=== PATIENT | female | born 1960 | race Two or more races ===

== ENCOUNTER 2017-06-23 05:49 | Inpatient (IN) | payer BC ==
[~2017-06-23] VITALS: Ht 165.1 cm; Wt 71.7 kg
[2017-06-23] VITALS (13 sets, daily range): BP systolic 108–126; BP diastolic 67–79
[2017-06-23] MEDS ORDERED: SYNTHROID75 MCG ORAL (06:32)
[2017-06-23] MEDS ORDERED: NORCO 5-325 TA1 EACH ORAL (06:32)
[2017-06-23] MEDS ORDERED: Thrombin 5000 units TOPIC ONE ×2 (07:05→11:12)
[2017-06-23] MEDS ORDERED: Bacitracin 50000 Units Vial ONE (07:06)
[2017-06-23] MEDS ORDERED: Gelfoam Absorbable 1gm powder pkt TOPIC ONE (07:06)
[2017-06-23] MEDS ORDERED: Bupivacaine w/Epi 0.5% 30ml Vial INJ ONE (07:06)
[2017-06-23] MEDS ORDERED: Surgicel 4in x 8in TOPIC ONE (07:06)
[2017-06-23] MEDS ORDERED: Thrombin 5000 units spray kit TOPIC ONE (07:06)
[2017-06-23] MEDS ORDERED: Chloraseptic Spray 20mL Bottle ORAL PRN (07:15)
[2017-06-23] MEDS ORDERED: HYDROmorphone 1mg/ml Carpuject SUBQ PRN (07:15)
[2017-06-23] MEDS ORDERED: LR 1000ml ONE (07:30)
[2017-06-23] MEDS ORDERED: Zemuron 50mg/5ml Inj IV ONE (07:30)
[2017-06-23] MEDS ORDERED: Morphine Sulfate 10mg/ml Inj ONE (07:30)
[2017-06-23] MEDS ORDERED: Propofol 200mg/20ml IV ONE (07:30)
[2017-06-23] MEDS ORDERED: fentaNYL 100 mcg/2 mL IV ONE (07:30)
[2017-06-23] MEDS ORDERED: Midazolam 2mg/2ml Inj ONE (07:30)
[2017-06-23] MEDS ORDERED: Neostigmine 1mg/ml 10ml Inj ONE (07:30)
[2017-06-23] MEDS ORDERED: NS Irrig 1000ml ONE (07:30)
[2017-06-23] MEDS ORDERED: Metoclopramide 10mg/2ml Inj ONE (07:30)
[2017-06-23] MEDS ORDERED: Propofol 1,000mg/ 100ml btl IV ONE (07:30)
[2017-06-23] MEDS ORDERED: Ketorolac 30mg Inj ONE (07:30)
[2017-06-23] MEDS ORDERED: Meperidine 25mg/0.5ml Inj (FOR RIGORS ONLY) ONE (07:30)
[2017-06-23] MEDS ORDERED: Glycopyrrolate 0.2mg/ml 1ml Vial ONE (07:30)
[2017-06-23] MEDS ORDERED: Sterile Water Irrig 1000ml IRRIG ONE (07:30)
--- NOTE | 2017-06-23 07:51 | Pre-Procedure Note/Attestation ---
Pre-Procedure Note/Attestation Complete Prior to Procedure Planned Procedure: not applicable Procedure Narrative: C5-7 ACDF Indications for Procedure Pre-Operative Diagnosis: C5-7 disc hernia Attestation I attest that I discussed the nature of the procedure; its benefits; risks and complications; and alternatives (and the risks and benefits of such alternatives ), prior to the procedure, with the patient (or the patient's legal inbound sales representative). I attest that, if there was a reasonable possibility of needing a blood transfusion, the patient (or the patient's legal inbound sales representative) was given the [facility] standardized written summary, pursuant to the [place] Shun Blood Safety Act ([place] Health and Safety Code # 1645, as amended). I attest that I re-evaluated the patient just prior to the surgery and that there has been no change in the patient's H&P, except as documented below: NADINE AMARO Jun 23, 2017 07:51
--- NOTE | 2017-06-23 08:56 | Anethesia Preoperative Eval ---
Anesthesia Pre-op PMH/ROS General Date of Evaluation: Jun 23, 2017 Time of Evaluation: 07:30 Anesthesiologist: DIANE ASA Score: ASA 2 Mallampati Score Class I : Soft palate, uvula, fauces, pillars visible Class II: Soft palate, uvula, fauces visible Class III: Soft palate, base of uvula visible Class IV: Only hard plate visible Mallampati Classification: Class II Surgeon: RELL Diagnosis: CERVICAL RADICULOPATHY Surgical Procedure: C5-7 ACDF Anesthesia History: none Family History: no anesthesia problems Allergies: Coded Allergies: FLUCONAZOLE (Verified Allergy, Severe, Hives, 06/23/17) hives Medications: see eMAR Past Medical History Other: other PMH Narrative: HYPOTHYROIDISM Anesthesia Pre-op Phys. Exam Physician Exam Last Vital Signs Date Time Temp Pulse Resp B/P (MAP) Pulse Ox O2 Delivery O2 Flow Rate FiO2 06/23/17 06:24 98.0 61 18 119/79 97 Room Air Constitutional: NAD Neurologic: CN 2-12 intact Cardiovascular: RRR Respiratory: CTA Airway Exam Mallampati Score: Class II MO: full ROM: full Teeth: intact Anesthesia Pre-op A/P Labs WNL Studies Pre-op Studies: EKG Risk Assessment & Plan Plan: gENERAL aNESTHESIA Status Change Before Surgery: No Pre-Antibiotics Given Within 1 Hr of Incision: Yes Time Given: 08:30 Mitch Hassan M.D. Jun 23, 2017 08:56
--- NOTE | 2017-06-23 08:58 | Immediate Post-Op Evaluation ---
Immediate Post-Op Evalulation Immediate Post-Op Evalulation Procedure: C5-7 ACDF Date of Evaluation: Jun 23, 2017 Time of Evaluation: 12:00 IV Fluids: 1300 Blood Products: 0 Estimated Blood Loss: 30 Urinary Output: 100 Blood Pressure Systolic: 130 Blood Pressure Diastolic: 65 Pulse Rate: 68 Respiratory Rate: 16 O2 Sat by Pulse Oximetry: 99 Temperature (Fahrenheit): 98 Pain Score (1-10): 0 Nausea: No Vomiting: No Patient Status: awake, reacts, patent, extubated, none Hydration Status: adequate Given Within 1 Hr of Incision: Yes Time Given: 08:30 Mitch Hassan M.D. Jun 23, 2017 08:58
[2017-06-23] MEDS ORDERED: Ketorolac 30mg Inj IV PRN (09:00)
[2017-06-23] MEDS ORDERED: LR 1000ml 1,000 ML IVLG SCH (09:00)
[2017-06-23] MEDS ORDERED: Morphine Sulfate 2mg/ml Inj IVP PRN (09:00)
[2017-06-23] MEDS ORDERED: Meperidine 50mg/ml Inj(FOR RIGORS ONLY) IVP PRN (09:00)
[2017-06-23] MEDS ORDERED: fentaNYL 100 mcg/2 mL IV PRN (09:00)
[2017-06-23] MEDS ORDERED: Acetaminophen (Non formulary) 100 ML IV ONE (09:00)
[2017-06-23] MEDS ORDERED: Docusate 100mg/10ml Liq NG SCH (09:00)
[2017-06-23] MEDS ORDERED: DiphenhydrAMINE 50mg/ml Inj IVP PRN (09:00)
--- NOTE | 2017-06-23 09:00 | 48 Hour Post Anesthesia Eval ---
Post Anesthesia Evaluation Procedure: C5-7 ACDF Date of Evaluation: Jun 25, 2017 Time of Evaluation: 12:00 Blood Pressure Systolic: 126 0: 65 Pulse Rate: 56 Respiratory Rate: 18 Temperature (Fahrenheit): 97 O2 Sat by Pulse Oximetry: 99 Airway: patent Nausea: No Vomiting: No Pain Intensity: 0 Hydration Status: adequate Mental Status/LOC: patient returned to baseline Follow-up care needed: patient intructions given Mitch Hassan M.D. Jun 23, 2017 09:00
[2017-06-23] MEDS ORDERED: Neosporin Oint Ud Pkt TOPIC ONE (12:53)
--- NOTE | 2017-06-23 13:02 | Brief Operative Note ---
Immediate Post Operative Note Operative Note Pre-op Diagnosis: C5-7 disc hernia Post-op Diagnosis: same as pre-op Findings: consistent w/pre-op dx studies Surgeon: Enid Director Data Management: Karen Anesthesia: general Specimen: yes - C5-7 disc Complications: none Condition: stable Fluids: 1 lt NS Estimated Blood Loss: minimal Drains: hemovac Implant(s) used?: Yes NADINE AMARO Jun 23, 2017 13:02
[2017-06-23] MEDS ORDERED: Norco 5mg/325mg tab ORAL PRN (13:15)
[2017-06-23] MEDS ORDERED: Morphine Sulfate 4mg/ml Inj SUBQ PRN (13:15)
--- NOTE | 2017-06-23 14:19 | Diagnostic Imaging Report ---
Indication: Neck Pain Findings: Fluoroscopic views of the cervical spine were obtained. Localization images followed by anterior fusion at C5-6 and C6-7 noted. impression: Intraoperative imaging
[2017-06-23] MEDS: Morphine Sulfate 4mg/ml Inj SUBQ PRN ×2 (15:52→19:49)
[2017-06-23] MEDS: ceFAZolin sod 1 GM in D5W 55 ML IV SCH ×2 (16:43→21:41)
--- NOTE | 2017-06-23 17:00 | Consultation ---
DATE OF CONSULTATION: 06/23/2017 CONSULTING PHYSICIAN: Mitch Aguilar M.D. REFERRING PHYSICIAN: Foreign Rossi M.D. REASON FOR CONSULTATION: Acute pain consult. HISTORY OF PRESENT ILLNESS: Dear Dr. Foreign Rossi, Thank you kindly for consulting me to evaluate and render an opinion as to how to proceed in the management of the patient's acute postoperative cervical spine pain after multiple level cervical spine instrumentation surgery today. On your request, I saw the patient for pain consultation to help with her postoperative neck pain. I saw the patient at the bedside with the nurse. I performed detailed history and physical examination and devised the following analgesic plan. I have reviewed the medical record in detail including multiple records from today's date of surgery, 06/23/2017 at [facility], also reviewed multiple preoperative records from [facility] from May 2017 along with diagnostic testing. I spent over 75 minutes in consultation with an additional 30 minutes in medical record review. PAST MEDICAL HISTORY: 1. Acute postoperative cervical spine pain status post multiple-level cervical spine instrumentation surgery by Dr. Foreign Rossi in June 2017. 2. Hypothyroidism. PAST SURGICAL HISTORY: In the medical record. MEDICATIONS AT HOME: 1. Synthroid 75 mcg daily. 2. [place] 10/325 two to four tablets daily. ALLERGIES: Fluconazole, in high doses causes a rash. Social History: The patient denies current alcohol, marijuana, or tobacco usage. FAMILY HISTORY: Longevity. REVIEW OF SYSTEMS: Per attending physician. PHYSICAL EXAMINATION: Vital Signs: Age 56. Height 5 feet 5 inches and weight 71 kilograms. Body mass index 27. Vital Signs: Afebrile, pulse 61, respirations 18, blood pressure 119/79, and oxygen saturation 97%. HEENT: Extraocular muscles intact. Pupils are equal, round, and accommodative. Neck And Neurologic: A detailed neck and neurologic exam per Dr. Rossi. CHEST: Clear to auscultation. HEART: Regular rate and rhythm. ABDOMEN: Soft. Positive bowel sounds. BREASTS: Deferred. GENITOURINARY: Deferred. Diagnostic Testing: Cervical spine x-ray on 04/10/2017 shows grade 1 spondylolisthesis seen at C4-C5. Preoperative chest x-ray on 06/13/2017 shows left basilar subsegmental atelectasis and normal heart silhouette. Preoperative 12-lead EKG within normal limits. Normal sinus rhythm at 68 on 06/16/2017. Laboratory Studies: Laboratory studies from 06/12/2017 shows glucose 97, BUN 17, creatinine 0.7, sodium 140, potassium 4.0, chloride 101, bicarb 31, and calcium 9.7. Total protein 7.5. Albumin 4.5. Total bilirubin 0.7. Alkaline phosphatase 113, AST 25, and ALT 14. , PTT 28, INR 1.0. White count 8, hematocrit 43, and platelets 291,000. Urinalysis is negative. HIV and hepatitis A, B, and C are all negative. IMPRESSION: 1. Acute postoperative cervical spine pain status post multiple-level cervical spine instrumentation surgery by Dr. Foreign Rossi in June 2017. 2. Hypothyroidism. Treatment And Recommendations: I have devised the following analgesic plan to help with her pain control postoperatively. The patient responds well to hydrocodone which she uses at home. She uses [place] 10/325 tablets anywhere between half a tablet and the full tablet three to four times per day. I have increased the dose to 10/325 one full tablet every three hours p.r.n. for mild pain. The patient has tolerated Dilaudid in the past without any adverse side effects. I have ordered Dilaudid 1 mg subcutaneously every three hours p.r.n. for severe breakthrough pain. The patient denies anxiety or any use of benzodiazepine medication. I would hold off on this class of agents for now. The patient also states that muscle relaxants have caused excessive sedation in the past, so I would avoid these medications as well. 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 I have ordered Chloraseptic spray bottle and Cepacol lozenges at the bedside to help with sore throat complaints postoperatively. I will empirically place the patient on Protonix 40 mg daily for gastrointestinal ulcer prophylaxis and I have also order a p.r.n. dose of Mylanta 30 mL q.6 hours in case of any gastroesophageal reflux disease symptom exacerbation. I have ordered Benadryl 25 mg orally every six hours p.r.n. for itching symptoms. I have ordered Zofran as a rescue antiemetic at a dose of 4 mg intravenously with a backup second-line antiemetic dose of Phenergan 12.5 mg every 8 hours p.r.n. As a rescue laxative, I have ordered Dulcolax suppository. I have also ordered clonidine 0.1 mg in case of systolic blood pressure greater than 150 mmHg. I have ordered incentive spirometer and encouraged good pulmonary toilet. I will defer DVT prophylaxis to the surgeon. Mitch Aguilar M.D. DR: REGINE JOB#: [id number] CC:
[2017-06-23] MEDS: Docusate 100mg cap ORAL SCH (18:03)
--- NOTE | 2017-06-23 21:41 | History and Physical ---
History of Present Illness General Date patient seen: Jun 23, 2017 Time patient seen: 21:37 Reason for Hospitalization: i WAS ASKED BY DR GARAY TO EVALUATE THE PATIENT IN INTERNAL MEDICAL CONSULT. Present Illness HPI 56YEAR OLD FEMALE IWITHHISTORY OF HYPOTHYROIDISM IS ADMITED TO UNDER GO CERVICAL SPIEN SURGERY. sHE IS S/P CERVICAL SPINE SURGERY DRAIN I S IN PLACE NO FEVER HAS JE EMUSCLE SPASM TOOK NORCO PRIOR TO ADMIOT AND LIKEES THAT BETTER THAN THE MORPHIE SHE IS TAKING NOW Allergies: Coded Allergies: FLUCONAZOLE (Verified Allergy, Severe, Hives, 06/23/17) hives Medication History Scheduled Levothyroxine Sodium* (Synthroid*), 75 MCG ORAL DAILY, (Reported) Scheduled PRN Hydrocodone Bit/Acetaminophen 5-325* ([place] 5-325*), 1 TAB ORAL Q4H PRN for For Pain, (Reported) Patient History Healthcare decision maker antonia phillips(mom and dad) Resuscitation status Full Code Advanced Directive on File No Past Medical/Surgical History Past Medical/Surgical History: (1) Hypothyroid Review of Systems Constitutional: Reports: no symptoms Eye: Reports: no symptoms ENT: Reports: no symptoms Cardiovascular: Reports: no symptoms Musculoskeletal: Reports: other - HAS AL MATT F SPASM Physical Exam General Appearance: WD/WN HEENT: normocephalic, atraumatic Neck: other - WEARING CERVICAL COLLAR Respiratory/Chest: lungs clear Cardiovascular/Chest: normal rate, no JVD Abdomen: non tender, soft Extremities: other - NO CLUBBING OR CYANOSIS Last 24 Hour Vital Signs Date Time Temp Pulse Resp B/P (MAP) Pulse Ox O2 Delivery O2 Flow Rate FiO2 06/23/17 20:00 97.7 60 20 120/76 97 Room Air 06/23/17 17:30 98.0 78 20 126/76 99 Nasal Cannula 2.0 06/23/17 15:30 97.0 65 17 114/69 99 Nasal Cannula 2.0 06/23/17 14:38 98.3 06/23/17 14:30 97.7 75 17 116/70 96 Nasal Cannula 2.0 06/23/17 14:20 98.3 70 15 114/72 95 Nasal Cannula 3.0 06/23/17 14:08 69 11 112/74 95 Nasal Cannula 3.0 06/23/17 13:55 70 11 114/69 95 Nasal Cannula 3.0 06/23/17 13:40 66 13 115/67 95 Nasal Cannula 3.0 06/23/17 13:30 68 11 110/67 99 Simple Mask 6.0 06/23/17 13:20 66 12 114/70 99 Simple Mask 6.0 06/23/17 13:15 69 12 112/70 99 Simple Mask 6.0 06/23/17 13:10 97.6 72 13 108/70 98 Simple Mask 6.0 06/23/17 09:00 56 18 99 06/23/17 08:58 68 16 99 06/23/17 06:24 98.0 61 18 119/79 97 Room Air Intake and Output 06/23/17 06/24/17 19:00 07:00 Intake Total 2325 ml Output Total 920 ml Balance 1405 ml Intake IV Total 2325 ml Output Urine Total 890 ml Drainage Total 0 ml Estimated Blood Loss 30 ml Height (Feet): 5 Height (Inches): 5.00 Weight (Pounds): 158 Medications Current Medications Medications (Trade) Dose Ordered Sig/Julita Route PRN Reason Start Time Stop Time Status Last Admin Dose Admin Acetaminophen/ Hydrocodone Bitart ([place] 10/325) 1 ea Q3HR PRN ORAL Pain Scale (3-5) 06/23/17 07:15 06/30/17 07:14 Acetaminophen/ Hydrocodone Bitart ([place] 5/325) 1 tab Q3H PRN ORAL pain score 1-3 06/23/17 13:15 06/30/17 13:14 Al Hydroxide/Mg Hydroxide (Mylanta) 30 ml Q6H PRN ORAL GERD 06/23/17 07:15 07/23/17 07:14 Bisacodyl (Dulcolax) 10 mg Q12HR PRN RECTAL Constipation 06/23/17 07:15 07/23/17 07:14 Cefazolin Sodium 1 gm/Dextrose 55 ml @ 110 mls/hr Q6H IV 06/23/17 16:00 06/24/17 04:29 06/23/17 16:43 Cetylpyridinium Chloride (Cepacol) 1 lozenge EVERY 2 HOURS PRN MATTHEW SORE THROAT 06/23/17 07:15 07/23/17 07:14 Clonidine HCl (Catapres) 0.1 mg Q8HR PRN ORAL For High Blood Pressure 06/23/17 07:15 07/23/17 07:14 Dextrose/ Electrolytes 1,000 ml @ 75 mls/hr [id number] IV 06/23/17 15:30 07/23/17 15:29 06/23/17 16:43 Diphenhydramine HCl (Benadryl) 25 mg Q6H PRN ORAL Itching 06/23/17 07:15 07/23/17 07:14 Docusate Sodium (Colace) 100 mg TWICE A DAY ORAL 06/23/17 18:00 07/23/17 17:59 06/23/17 18:03 Hydromorphone HCl (Dilaudid) 1 mg Q3HR PRN SUBQ Severe Breakthru Pain (>7) 06/23/17 07:15 06/30/17 07:14 Morphine Sulfate (Morphine Sulfate) 4 mg Q3H PRN SUBQ Severe Pain (Pain Scale 7-10) 06/23/17 13:15 06/30/17 13:14 06/23/17 19:49 Morphine Sulfate (Morphine Sulfate) 4 mg Q4H PRN SUBQ Moderate Pain (Pain Scale 4-6) 06/23/17 13:15 06/30/17 13:14 Ondansetron HCl (Zofran) 4 mg Q4HR PRN IVP Nausea & Vomiting 06/23/17 07:15 07/23/17 07:14 Pantoprazole (Protonix) 40 mg BEDTIME ORAL 06/23/17 21:00 07/23/17 20:59 06/23/17 19:49 Phenol/Menthol (Chloraseptic) 1 spray Q3H PRN ORAL SORE THROAT 06/23/17 07:15 07/23/17 07:14 Promethazine HCl (Phenergan) 12.5 mg Q8HR PRN IM Nausea & Vomiting 06/23/17 07:15 07/23/17 07:14 Assessment/Plan Status Narrative S/P COMPLEX SOPINE SURGERY PT OT DVT PROPHYALXOS PAIN CONTROL AD DNORCO PRN ANSD FELICITY FLANNERY Jun 23, 2017 21:41
[2017-06-23] MEDS: Cyclobenzaprine 10mg Tab ORAL SCH (22:07)
[2017-06-23] MEDS: Norco 10mg/325mg tab ORAL PRN (22:51)
[2017-06-24 00:45] VITALS: BP 110/65
--- NOTE | 2017-06-24 01:00 | Operative Note - Dictated ---
DATE OF OPERATION: 06/23/2017 PREOPERATIVE DIAGNOSES: 1. C5-C6 and C6-C7 disk herniation. 2. Radiculopathy. 3. Neck pain. 4. Osteophyte formation. 5. Cervical stenosis. 6. Cervical foraminal stenosis. POSTOPERATIVE DIAGNOSES: 1. C5-C6 and C6-C7 disk herniation. 2. Radiculopathy. 3. Neck pain. 4. Osteophyte formation. 5. Cervical stenosis. 6. Cervical foraminal stenosis. PROCEDURES: 1. C5-C6 anterior cervical diskectomy for purposes other than fusion. 2. C5-C6 bilateral foraminotomies for purposes other than fusion. 3. C5-C6 interbody fusion. 4. C5-C6 placement of interbody graft on NuVasive Standalone PEEK. 5. Instrumentation of C5-C6 using NuVasive titanium screws. 6. Decompression of the spinal cord for purposes other than fusion. 7. Posterior osteophytectomy, osteotomy at C5. 8. Posterior osteophytectomy, osteotomy at C6. 9. Anterior osteotomy and osteophyte removal at C5, C6, and C7. 10. Partial corpectomy of C6. 11. Partial corpectomy of C7. 12. Anterior cervical diskectomy at C6-C7 for purposes other than fusion. 13. Decompression of the spinal cord at C6-C7. 14. Bilateral foraminotomy for purposes other than fusion at C6-C7. 15. Interbody fusion at C6-C7. 16. Placement of interbody cage at C6-C7 from NuVasive PEEK. 17. Instrumentation of C6-C7 using titanium screws from NuVasive. 18. Use of intraoperative allograft, Osteocel, for fusion at C5-C6 and C6-C7. 19. Neurolysis of right C7. 20. Neurolysis of left C6. 21. Neurolysis of right C6. 22. Use of intraoperative microscope. 23. Intraoperative use of fluoroscopy for three hours. 24. Microscopic plastic closure of wound, 3 cm in length. 25. Interpretation of x-ray of the cervical spine x15. 26. Interpretation of the MRI of the cervical spine intraoperatively. 27. SSEP, upper and lower extremities for three hours. 28. Motor-evoked potential for upper and lower extremities for three hours. 29. Free-run EMG evaluation of upper and lower extremities for three hours. 30. Application of cervical collar. SURGEON: Foreign Rossi M.D. MAGISTRATE: Dr. Jones. ANESTHESIA: General. COMPLICATIONS: None. Condition: Transferred to recovery room under stable condition moving all of her extremities and I immediately discussed the case with the family. Indication For Procedure: The patient is a 56-year-old female with cervical pain and radiculopathy and MRI demonstrated C5-C6 and C6-C7 disk herniation and foraminal stenosis. The patient also has pathology at various levels other than these two, but we have planned for cervical decompression and fusion at these levels primarily. The risks and benefits of the operation have been explained to the patient extensively. The patient understood the risks and agreed to the surgery and signed the consent form understanding that there would be no guarantees. All questions have been answered. Description Of Procedure: After informed consent was obtained, the patient was taken to the operative room where she was placed under general anesthesia intubation. The area of interest was shaved, prepped, and draped after the patient was positioned. SSEPs and motor-evoked potentials were obtained demonstrating right triceps weakness as well as C7 signal amplitude reduction to 50%, both of which came back normal at the end. This was at baseline. At this point, the incision was planned after fluoroscopic examination of the cervical spine and a metal pointer. The incision was planned to the right of midline and after injecting with Marcaine 0.5% 4 mL, the incision was made using a #10 blade knife and was taken through the platysma, which was divided and undermined. The cervical fascia was dissected down through prevertebral space. Very large anterior osteophytes were encountered and we localized the disk space at C5-C6 using a spinal needle. At this point, under microscope, we performed an osteotomy and anterior osteophyte removal of C5 and C6 through an appropriate level. The diskectomy was performed using annulotomy and then subsequent curette, Kerrison, and high-speed drill were used to perform diskectomy and removal of the osteophytes. There were calcified disks that were dug into the cord and had to be removed very carefully using high-speed drill and micro instruments. Foraminotomy was performed at first to mobilize the dura and the nerves, and the calcified disks were removed very carefully. There was no CSF leak. At this point, hemostasis was obtained. I had to undermine and drill the C6 and C7 to remove a lot of these osteophytes significantly. At this point, the dura was well decompressed and the C6 on the right improved as well as the C6 on the left. The triceps improved and C7 improved by 10%, but still 40% down. At this point, endplates were prepared for fusion and then Osteocel was placed inside the cage that was sized to fit in, which was 6 x 14 x 17. The cage was placed and x-ray confirmed good localization and we used all end screws, one up and two down to secure the endplates and the cage. At this point, hemostasis was obtained. We turned our attention to the C6-C7 level, again confirmed localization and we proceeded to anterior osteophyte removal and osteotomy. We then placed retractor again with Caspars and again performed diskectomy and posterior osteophyte removal and partial corpectomy at C6 and C7 and resection of some of the osteophytes with osteotome. The foraminal opening was performed and at both levels of C5-C6 and C6-C7, we used micro instruments to dissect around the nerve roots as they were going out to break up all the adhesions. Absolute hemostasis was obtained with signals came back to normal at this point. Once again, the same-sized cage was placed with Osteocel inside and secured in place using titanium screws. X-rays demonstrated good position of hardware in AP and lateral position. We proceeded with placing a drain in the prevertebral space and securing it using 3-0 nylon suture. The platysma was closed using 2 running Vicryl sutures followed by intraoperative 3-0 Vicryl sutures and 4-0 Monocryl, microscopic plastic closure of wound. Dermabond was applied. The patient was extubated, moving all of her extremities, and was transferred to recovery room under stable condition. Foreign Rossi M.D. DR: LISBETH JOB#: [id number] CC:
[2017-06-24] MEDS: Norco 10mg/325mg tab ORAL PRN ×4 (01:43→11:54)
[2017-06-24 04:00] VITALS: BP 110/71
[2017-06-24] MEDS: ceFAZolin sod 1 GM in D5W 55 ML IV SCH (04:20)
[2017-06-24] MEDS ORDERED: HYDROmorphone 1mg/ml Carpuject SUBQ PRN (06:45)
[2017-06-24 08:00] VITALS: BP 127/75
[2017-06-24] MEDS: Docusate 100mg cap ORAL SCH (08:17)
[2017-06-24] MEDS: Cyclobenzaprine 10mg Tab ORAL SCH (09:00)
[2017-06-24 10:29] VITALS: BP 116/58
--- NOTE | 2017-06-24 10:29 | 48 Hour Post Anesthesia Eval ---
Post Anesthesia Evaluation Procedure: C5-7 ACDF Date of Evaluation: Jun 24, 2017 Time of Evaluation: 10:28 Blood Pressure Systolic: 116 0: 58 Pulse Rate: 72 Respiratory Rate: 20 Temperature (Fahrenheit): 97.6 O2 Sat by Pulse Oximetry: 98 Airway: patent Nausea: No Vomiting: No Pain Intensity: 2 Hydration Status: adequate Cardiopulmonary Status: stable Mental Status/LOC: patient returned to baseline Follow-up Care/Observations: n/a Post-Anesthesia Complications: none Follow-up care needed: ready to discharge SUE CRUZ M.D. Jun 24, 2017 10:29
[2017-06-24] MEDS ORDERED: Tubing IV Secondary IV ONE (12:54)
--- NOTE | 2017-06-24 16:00 | Progress Note ---
DATE: 06/24/2017 ACUTE PAIN MANAGEMENT PHYSICIAN PROGRESS NOTE Medications: Medication administration record reviewed. Medication include Dulcolax, Cepacol, Chloraseptic, Catapres, Flexeril, IV fluids, Benadryl, Colace, Clarkia, Dilaudid, Mylanta, Zofran, Protonix, and Phenergan. LABORATORY STUDIES: No interval laboratory studies. PHYSICAL EXAMINATION: Vital Signs: Within normal limits. Afebrile. Pulse 63, respirations 20, blood pressure 110/71, and oxygen saturation 94% on room air. Pain level is 5/10 on the visual analog pain scale. Output from the Hemovac drain overnight was approximately 10 mL. I saw the patient at bedside with the nurse RN, Van. The patient states that she already has a good supply of Clarkia at home for home usage. Overnight, the patient did use her Clarkia and subcutaneous morphine. She stated that the morphine was too strong and made her very dizzy. I have discontinued the morphine and switched her over to low-dose of subcutaneous Dilaudid 0.5 mg subcutaneous every three hours p.r.n. for severe breakthrough pain. The Clarkia 10/325 mg tablets seem to be providing good analgesic effect. At home, the patient uses half to one tablet routinely so this 10 mg dose seems to be working well. Again, the patient has a good supply of Clarkia already at home. The patient is swallowing, breathing, and phonating well after her neck surgery. Neck dressing appears clean and dry. The patient is neurologically intact. Moving all extremities x4. She has 5/5 dorsiflexion, 5/5 plantar flexion in bilateral lower extremities. The patient is breathing comfortably on room air and is compliant using her incentive spirometer. With the nurse BRAYAN Garcia at bedside, I removed the soft cervical collar to examine the cervical spine dressing wound. The wound appeared clean and dry. The bandage was removed showing the incision line clean and dry with no evidence for erythema or exudate. I cut the suture holding in the indwelling cervical spine drain catheter. Then, its end-expiration, with Hemovac drains, taken off of suction, I personally removed the indwelling cervical spine drain catheter. The tip was intact. Alcohol swab was applied generously to the drain hole site. Finally 2 x 2 sterile gauze were applied to the drain hole site and incision line followed by a sterile 4 x 6 Tegaderm OpSite. The soft collar was replaced and there were no complications Mitch Aguilar M.D. DR: CHRIS JOB#: [id number] CC:
--- NOTE | 2017-06-27 08:08 | Discharge Summary ---
Discharge Summary Hospital Course Date of Admission Jun 23, 2017 at 15:15 Date of Discharge Jun 24, 2017 at 12:55 Admitting Diagnosis C5-C6 and C6-C7 disk herniation with Radiculopathy. Reason for Hospitalization: elective surgery HPI Laly Sung is a 56 year old female who was admitted on Jun 23, 2017 at 15:15 for Disc Herniation Stenosis C5-7 Consultations Nataly Aguilar- pain specialist Nataly Miranda- IM Procedures s/p 06/23/[address] Rossi 1. C5-C6 anterior cervical diskectomy for purposes other than fusion. 2. C5-C6 bilateral foraminotomies for purposes other than fusion. 3. C5-C6 interbody fusion. 4. C5-C6 placement of interbody graft on [employer] Standalone PEEK. 5. Instrumentation of C5-C6 using [employer] titanium screws. 6. Decompression of the spinal cord for purposes other than fusion. 7. Posterior osteophytectomy, osteotomy at C5. 8. Posterior osteophytectomy, osteotomy at C6. 9. Anterior osteotomy and osteophyte removal at C5, C6, and C7. 10. Partial corpectomy of C6. 11. Partial corpectomy of C7. 12. Anterior cervical diskectomy at C6-C7 for purposes other than fusion. 13. Decompression of the spinal cord at C6-C7. 14. Bilateral foraminotomy for purposes other than fusion at C6-C7. 15. Interbody fusion at C6-C7. 16. Placement of interbody cage at C6-C7 from [employer] PEEK. 17. Instrumentation of C6-C7 using titanium screws from [employer]. 18. Use of intraoperative allograft, Osteocel, for fusion at C5-C6 and C6-C7. 19. Neurolysis of right C7. 20. Neurolysis of left C6. 21. Neurolysis of right C6. 22. Use of intraoperative microscope. 23. Intraoperative use of fluoroscopy for three hours. 24. Microscopic plastic closure of wound, 3 cm in length. 25. Interpretation of x-ray of the cervical spine x15. 26. Interpretation of the MRI of the cervical spine intraoperatively. 27. SSEP, upper and lower extremities for three hours. 28. Motor-evoked potential for upper and lower extremities for three hours. 29. Free-run EMG evaluation of upper and lower extremities for three hours. 30. Application of cervical collar. Hospital Course s/p surgery pain management pain specialist followed drain, monitor output liquid diet as tolerated lozenges prn for comfort incision C/D/I, monitor, mobilize OOB with PT DVT prophayxlis voided, ambulated, pain controlled, tolerated liquid diwt stable for dc and fup with surgeon as outpatient as advised FINAL DIAGNOSIS 1. C5-C6 and C6-C7 disk herniation. 2. Radiculopathy. 3. Neck pain. 4. Osteophyte formation. 5. Cervical stenosis. 6. Cervical foraminal stenosis. 7. s/p C5-7 ACDF Discharge Medications Continued Medications: Hydrocodone Bit/Acetaminophen 5-325* (Ferron 5-325*) 1 Each Tablet 1 TAB ORAL Q4H PRN for For Pain, TAB 0 Refills Levothyroxine Sodium* (Synthroid*) 75 Mcg Tablet 75 MCG ORAL DAILY, TAB Take in the morning on an empty stomach, at least 30 minutes before food. Discharge Condition Upon Discharge: stable Discharge Disposition Patient was discharged to Home (01) Discharge Diagnoses: Discharge Instructions Discharge Instructions Special Instructions I have been assigned to complete a D/C Summary on this account. I was not involved in the patient management Charisse Bardales NP ([place]) Jun 27, 2017 08:08
== END 2017-06-24 12:55 | disposition home or self-care (01) | DRG 473 ==
LOC: SUR 05:49 → EDSTATUS 07:30 → 3E 15:15
PROC: 0PB30ZZ Excision of Cervical Vertebra, Open Approach (ICD-10-PCS; principal; 2017-06-23 07:30)
PROC: 0RG20A0 Fusion of 2 or more Cervical Vertebral Joints with Interbody Fusion Device, Anterior Approach, Anterior Column, Open Approach (ICD-10-PCS; principal; 2017-06-23 07:30)
PROC: 00NW0ZZ Release Cervical Spinal Cord, Open Approach (ICD-10-PCS; principal; 2017-06-23 07:30)
PROC: 0RB30ZZ Excision of Cervical Vertebral Disc, Open Approach (ICD-10-PCS; principal; 2017-06-23 07:30)
PROC: 01N10ZZ Release Cervical Nerve, Open Approach (ICD-10-PCS; principal; 2017-06-23 07:30)
DX: M50.122 Cervical disc disorder at C5-C6 level with radiculopathy (principal); M48.02 Spinal stenosis, cervical region; M25.78 Osteophyte, vertebrae; E78.2 Mixed hyperlipidemia; E03.9 Hypothyroidism, unspecified; M43.12 Spondylolisthesis, cervical region
CPT/HCPCS: 36415; 72040; 76001; 86850; 86900; 86901; 87081; 94003; 94150; J2180; J2250; J2405; J2710; J2765